=== PATIENT | male | born 1955 | race Caucasian/White ===

== ENCOUNTER 2020-02-02 20:15 | Emergency (ER) | payer OTHER ==
[~2020-02-02] VITALS: Ht 175.3 cm; Wt 72.6 kg
[~2020-02-02 20:15] MED LIST: ALBUTEROL SULF8.5 GM INH; LIBRIUM10 MG ORAL; ZITHROMAX250 MG ORAL
[2020-02-02 20:20] VITALS: BP 160/97
--- NOTE | 2020-02-02 20:26 | NUR ---
e prevention ED Nurse Note: pt presents to ED with a behavioral complaint. pt is placed on a 5150 hold by [employer] officer Augustin dotson # [id number] for SI. per pt, he has been feeling "hopeless" with intent to harm himself by "cutting wrirsts and legs, bleeding out into tub." pt states that he has made calls to the suicide prevention every month. today, [employer] team report that pt's friend made a call to them because pt called an [id number] friend describing to the friend that he would cut himself until he bled out and that his friend could come "find his body in the bathtub." pt denies ever having attempted to hurt himself in the past but has "contemplated it for a long time." pt denies any auditory or visual hallucinations at this time. he does admit to drinking 750mL off vodka this morning. pt follows commands and answer questions clearly, but becomes tearful during questioning. pt stated he does not want to go to a psychiatric hospital, repeatedly demanding to use his phone. pt is otherwise compliant. all safety precautions are in place, sitter is at bedside, will cont to monitor pt
--- NOTE | 2020-02-02 20:34 | NUR ---
ED Nurse Note: IV line established, blood collected and sent to lab. pt provided with urinal for urine specimen but unable to void at this time
--- NOTE | 2020-02-02 20:38 | NUR ---
BELONGINGS PLACED IN LOCKER #1
[2020-02-02] MEDS ORDERED: LORazepam Inj 2mg/ml 1ml IV ONE (20:45)
--- NOTE | 2020-02-02 20:50 | NUR ---
ED Nurse Note: pt asking to make a call to his friend Tom Saravia who called the police and told them pt wanted to hurt himself. contact info: [phone]
[2020-02-02 20:55] LABS: BASOPHILS % (AUTO) 1.4 % (0.0-2.0); EOSINOPHILS % (AUTO) 2.5 % (0.0-3.0); HEMATOCRIT 50.3 % (42.0-52.0); HEMOGLOBIN 16.5 G/DL (14.2-18.0); LYMPHOCYTES % (AUTO) 38.6 % (20.0-45.0); MEAN CORPUSCULAR VOLUME 85 FL (80-99); NEUTROPHILS % (AUTO) 47.5 % (45.0-75.0); PLATELET COUNT 168 K/UL (150-450); RED BLOOD COUNT 5.93 M/UL (4.70-6.10); RED CELL DISTRIBUTION WIDTH 17.7 % (11.6-14.8); WHITE BLOOD COUNT 5.1 K/UL (4.8-10.8)
[2020-02-02 20:56] LABS: ANION GAP 12 mmol/L (5-15); BLOOD UREA NITROGEN 14 mg/dL (7-18); CALCIUM 8.5 MG/DL (8.5-10.1); CARBON DIOXIDE 30 MMOL/L (21-32); CHLORIDE 103 MMOL/L (98-107); CREATININE 1.1 MG/DL (0.55-1.30); POTASSIUM 3.9 MMOL/L (3.5-5.1); SODIUM 145 MMOL/L (136-145)
[2020-02-02 21:06] LABS: ALANINE AMINOTRANSFERASE 76 U/L (12-78); ALBUMIN 4.3 G/DL (3.4-5.0); ALBUMIN/GLOBULIN RATIO 1.1 (1.0-2.7); ALKALINE PHOSPHATASE 69 U/L (46-116); ASPARTATE AMINO TRANSFERASE 52 U/L (15-37); BILIRUBIN,TOTAL 1.1 MG/DL (0.2-1.0)
--- NOTE | 2020-02-02 21:16 | Emergency Room Report ---
History of Present Illness General Chief Complaint: Behavioral Complaint Source: Patient (Tristen Reeves MD) Present Illness HPI 64-year-old male presents the ED for behavioral evaluation. Brought in by EMS from home. Patient states he has been drinking alcohol every day. States he is in withdrawals. States that he told his EMS patient told his friend that he did not want to live anymore. Patient states he does have a history of depression because he is lonely. Does not take any medications. States that he does not SI or HI at this time. Denies any drug use. No other aggravating relieving factors. Denies any other associated symptoms (Tristen Reeves MD) Allergies: Coded Allergies: No Known Allergies (Unverified , 08/27/12) COVID-19 Screening Contact w/high risk pt: No Experienced COVID-19 symptoms?: No COVID-19 Testing performed HUMAN RESOURCES ADMINISTRATOR: No (Tristen Reeves MD) Patient History Past Medical History: none Past Surgical History: none Pertinent Family History: none Social History: Reports: alcohol use; Denies: smoking, drug use Immunizations: UTD Reviewed Nursing Documentation: PMH: Agreed; PSxH: Agreed (Tristen Reeves MD) Review of Systems All Other Systems: negative except mentioned in HPI (Tristen Reeves MD) Physical Exam Vital Signs Date Time Temp Pulse Resp B/P (MAP) Pulse Ox O2 Delivery O2 Flow Rate FiO2 02/01/ 20:08 98.4 103 16 160/97 (118) 98 Room Air Sp02 EP Interpretation: reviewed, normal General Appearance: no apparent distress, alert, GCS 15, non-toxic Head: normocephalic, atraumatic Eyes: bilateral eye normal inspection, bilateral eye PERRL ENT: hearing grossly normal, normal pharynx, no angioedema, normal voice Neck: full range of motion, supple/symm/no masses Respiratory: chest non-tender, lungs clear, normal breath sounds, speaking full sentences Cardiovascular #1: regular rate, rhythm, no edema Cardiovascular #2: 2+ carotid (R), 2+ carotid (L), 2+ radial (R), 2+ radial (L) , 2+ dorsalis pedis (R), 2+ dorsalis pedis (L) Gastrointestinal: normal bowel sounds, non tender, soft, non-distended, no guarding, no rebound Rectal: deferred Genitourinary: normal inspection, no CVA tenderness Musculoskeletal: back normal, normal range of motion, gait/station normal, non- tender Neurologic: alert, motor strength/tone normal, oriented x3, sensory intact, responsive, speech normal Psychiatric: judgement/insight normal, memory normal, mood/affect normal, no suicidal/homicidal ideation, depressed affect, anxious Reflexes: 3+ bicep (R), 3+ bicep (L), 3+ tricep (R), 3+ tricep (L), 3+ knee (R) , 3+ knee (L) Skin: no rash Lymphatic: no adenopathy (Tristen Reeves MD) Medical Decision Making Diagnostic Impression: Primary Impression: Alcohol intoxication Qualified Codes: F10.920 - Alcohol use, unspecified with intoxication, uncomplicated Additional Impression: Suicidal ideation ER Course Pt s/o to nc. He presents with alcohol intoxication and voiced suicidal thoughts. Police placed him on a 5150 Hold. Pt has been stable. repeat alcohol 107. He is medically cleared for psych evaluation. (Franklin Taylor MD) ER Course Assumed care of the patient from the previous provider at approximately 0600 hrs. Please refer to initial note for full history and physical exam. Briefly, patient on 5150 hold pending placement for psychiatric evaluations. Patient has been medically cleared by previous provider. He has now been accepted to [facility] psych facility. Stable for transport. (Brett Martell MD) Last Vital Signs Date Time Temp Pulse Resp B/P (MAP) Pulse Ox O2 Delivery O2 Flow Rate FiO2 02/02/20 20:20 99 16 Room Air 02/02/20 20:20 98.4 160/97 98 (Tristen Reeves MD) Status: improved (Franklin Taylor MD) Disposition: PSYCH HOSP/UNIT Condition: Stable Referrals: NOT CHOSEN IPA/,REFERRING (PCP) Tristen Reeves MD Feb 02, 2020 21:16 Franklin Taylor MD Feb 03, 2020 03:01 Brett Martell MD Feb 03, 2020 13:01
[2020-02-02 21:27] LABS: BILIRUBIN,DIRECT 0.3 MG/DL (0.0-0.3)
--- NOTE | 2020-02-02 21:52 | NUR ---
ED Nurse Note: per request, pt was provided with multiple sandwiches and juices, states he "has not eaten for 3 days." pt tolerated well, extra blankets provided for comfort. all safety precautions are in place. will continue to monitor pt
--- NOTE | 2020-02-02 21:58 | NUR ---
ED Nurse Note: Colby Restrepo [phone]
[2020-02-02 22:17] VITALS: BP 153/91
--- NOTE | 2020-02-02 22:17 | NUR ---
HAND-OFF: Report given to Fareed Baez RN
--- NOTE | 2020-02-02 22:17 | NUR ---
ED Nurse Note: Received patient in bed with no acute distress. patient ao4. denies pain, si or hi. calm and cooperative. Environmental risk safety preacutions observed. Decreased environmental stimuli. provided nourishment and urinal at bedside. All safety measures met. Ressumed continuous monitoring; patient within visual distance.
[2020-02-02 22:20] LABS: APPEARANCE,URINE CLEAR; BILIRUBIN, URINE NEGATIVE (NEGATIVE); COLOR,URINE PALE YELLOW; GLUCOSE, URINE (UA) NEGATIVE (NEGATIVE); KETONES,URINE 1+ (NEGATIVE); LEUKOCYTE ESTERASE ,URINE NEGATIVE (NEGATIVE); NITRITE,URINE NEGATIVE (NEGATIVE); PH,URINE 7 (4.5-8.0); PROTEIN,URINE 2+ (NEGATIVE); UROBILINOGEN,URINE NORMAL MG/DL (0.0-1.0)
--- NOTE | 2020-02-02 23:30 | NUR ---
ED Nurse Note: Confirmed belongings placement in Psych locker 1 with copy of belongings list; original list in chart.
[2020-02-03] VITALS (8 sets, daily range): BP systolic 138–184; BP diastolic 75–106
--- NOTE | 2020-02-03 00:35 | NUR ---
ED Nurse Note: Patient remains sleeping in bed with no acute signs of distress. even and unlabored respirations visualized. continuous observation resumed.
--- NOTE | 2020-02-03 02:00 | NUR ---
ED Nurse Note: Discussed plan of care with patient; states understanding of 5150 hold and aware pending transfer to psych facility. Repeat blood alcohol drawn; sent down to lab. patient able to ambulate to bathroom with steady gait. Assisted back to bed without incident. Patient calm and cooperative. AO4. denies SI or HI. vitals stable to baseline.
[2020-02-03] MEDS ORDERED: chlordiazePOXIDE 25mg Cap ORAL ONE (03:00)
--- NOTE | 2020-02-03 03:09 | NUR ---
ED Nurse Note: Patient reports restlessness and shakiness. Notified ERMD, received new orders. Medicated patient; tolerated well. Patient cooperative and willing to continue with plan of care.
--- NOTE | 2020-02-03 04:40 | NUR ---
ED Nurse Note: Patient in bed sleeping with no acute distress. respirations even and unlabored. all safety measures met.
--- NOTE | 2020-02-03 05:14 | NUR ---
ED Nurse Note: Patient ambulated to bathroom with steady gait. escorted back to bed. calm and compliant with care. continous observation resumed.
--- NOTE | 2020-02-03 06:05 | NUR ---
ED Nurse Note: patient ao4 in bed with no acute distress. provided nourishment; patient tolerated well. resumed continuous observation.
--- NOTE | 2020-02-03 07:00 | NUR ---
ED Nurse Note: Endorsement recevied from BASSEM Stack pt in bed resting. Meal tray ordered. Pt denies Harm to self or desire to hurt others. pt states "I'm ready go home i dont want to be here anymore". Pt appears to have tremor like shakes. pt is calm and cooperative but appears anxious.
--- NOTE | 2020-02-03 07:13 | NUR ---
ED Nurse Note: Pt is able to ambulate to restroom with steady gait. Pt IV site patent and intact.
[2020-02-03] MEDS ORDERED: LORazepam Inj 2mg/ml 1ml IV ONE (07:15)
--- NOTE | 2020-02-03 07:43 | NUR ---
ED Nurse Note: Breakfast tray served to pt.
--- NOTE | 2020-02-03 08:05 | NUR ---
ED Nurse Note: Pt is calm, pt able to stand independly. Pt eating breakfast.
--- NOTE | 2020-02-03 08:58 | NUR ---
ED Nurse Note: Pt ambulated to restroom with steady gait.
--- NOTE | 2020-02-03 10:47 | NUR ---
ED Nurse Note: Gave telephone endorsement to BASSEM Middleton from [facility] for continuity of care. Pt await S transport ETA [id number].
--- NOTE | 2020-02-03 11:30 | NUR ---
ED Nurse Note: Pt asked if he may sit in hallway on chair because he feels like he is going insane being the room for so long. Pt given mask and allowed to sit on chair with superivison. Waiting fro ambulance to transfer pt.
--- NOTE | 2020-02-03 11:45 | NUR ---
ED Nurse Note: Pt is becoming restless and appearing anxious due to tranportation delay. informed ERMD.
[2020-02-03] MEDS ORDERED: LORazepam 0.5mg tab ORAL ONE (12:15)
--- NOTE | 2020-02-03 13:00 | NUR ---
ED Nurse Note: [facility] at bed side pt SBP 180. Pt given clonidine. Will reassess pt BP for stablility before transport
--- NOTE | 2020-02-03 13:31 | NUR ---
ED Nurse Note: SBP went down to 162. Called [facility] and spoke with Nessa montes. per Emi that BP is okay pt may be transport to their facility. Pt has all belonings. IV site removed.
== END 2020-02-03 13:32 ==
LOC: EDBD 20:15 → EMR 20:34
DX: F10.129 Alcohol abuse with intoxication, unspecified (principal); R45.851 Suicidal ideations; F32.9 Major depressive disorder, single episode, unspecified
CPT/HCPCS: 36415; 80053; 80307; 81003; 82248; 85025; 96361; 96374; 96376; 99285; G0480; J7030; U0002